=== PATIENT | female | born 1990 | race Caucasian/White ===

== ENCOUNTER 2020-11-06 20:28 | Emergency (ER) | payer MEDICAID ==
[~2020-11-06] VITALS: Ht 160 cm; Wt 56.8 kg
[2020-11-06 20:38] VITALS: BP 130/91; Ht 160 cm; Wt 56.8 kg
== END 2020-11-06 22:00 | disposition left against medical advice (07) ==
LOC: D.ER 20:28
DX: M54.2 Cervicalgia (principal)